=== PATIENT | female | born 1945 | race Caucasian/White ===

== ENCOUNTER 2020-04-10 07:40 | Day surgery (SDC) | payer OTHER ==
[~2020-04-10 07:40] MED LIST: ULTRACET PO
== END 2020-04-10 11:50 | disposition home or self-care (01) ==
LOC: AMB-ENDOS 07:40
PROVIDERS: ATTEND Surgery
DX: K62.89 Other specified diseases of anus and rectum (principal); K64.8 Other hemorrhoids; Z12.11 Encounter for screening for malignant neoplasm of colon; Z20.828 Contact with and (suspected) exposure to other viral communicable diseases

== ENCOUNTER 2021-02-12 14:09 | Outpatient (CLI) | payer OTHER | END 2021-02-12 14:18 | disposition home or self-care (01) | LOC: RAD 14:09 | PROVIDERS: ATTEND Internal Medicine | DX: R07.89 Other chest pain (principal); S28.0XXA Crushed chest, initial encounter ==